=== PATIENT | male | born 1960 | race African-American/Black ===

== ENCOUNTER 2019-01-07 02:29 | Emergency (ER) | payer MEDICAID ==
[~2019-01-07] VITALS: Ht 185.4 cm; Wt 160.0 kg
[2019-01-07] MEDS ORDERED: FUROSEMIDE 40MG/4ML VIAL IV ONE (03:15)
[2019-01-07 04:22] LABS: HEMATOCRIT. 44.2 % (42.0-52.0); HEMOGLOBIN. 14.7 g/dL (14.0-18.0); MEAN CORPUSCULAR HEMOGLOBIN 27.6 pg (28.0-32.0); MEAN CORPUSCULAR VOLUME 82.8 fL (80.0-94.0); MEAN PLATELET VOLUME 9.8 fl (7.4-10.4); PLATELET 319 x1000/uL (130-400); RED BLOOD CELL COUNT 5.34 mill/uL (4.7-6.1); RED CELL DISTRIBUTION WIDTH 15.1 % (11.6-14.6)
[2019-01-07 04:23] LABS: CHLORIDE 103 mEq/L (98-107)
[2019-01-07 05:01] LABS: PLATELET ESTIMATE NORMAL
[2019-01-07 07:12] VITALS: BP 149/65
== END 2019-01-07 05:54 | disposition home or self-care (01) ==
LOC: ER 02:29
DX: R60.0 Localized edema (principal); M79.605 Pain in left leg; M79.604 Pain in right leg; I11.0 Hypertensive heart disease with heart failure; I50.9 Heart failure, unspecified; I20.9 Angina pectoris, unspecified; F17.200 Nicotine dependence, unspecified, uncomplicated
CPT/HCPCS: 36415; 71045; 80053; 83880; 84484; 85025; 93005; 96374; 99284; J1940